=== PATIENT | male | born 1995 | race Caucasian/White ===

== ENCOUNTER 2016-08-07 02:01 | Emergency (ER) | payer MEDICAID, OTHER ==
[~2016-08-07] VITALS: Ht 182.9 cm; Wt 77.3 kg
[~2016-08-07 02:01] MED LIST: Z.0.NO CURRENT MEDS
[2016-08-07 02:02] VITALS: TEMP 97.5
[2016-08-07] MEDS ORDERED: SODIUM CHLOR 0.9% 1000 ML INJ 1,000 ML IV SCH (02:15)
[2016-08-07] MEDS ORDERED: THIAMINE INJ 100 MG in SODIUM CHLORIDE 0.9% INJ 100 ML IV ONE (02:15)
--- NOTE | 2016-08-07 02:18 | PD ---
HPI Chief Complaint: Alcohol/Drug Intoxication Time Seen by Provider: 02:08 Travel History International Travel<30 days: No Contact w/Intl Traveler<30days: No Traveled to known affect area: No History of Present Illness HPI 20-year-old male was brought in by EMS for altered mental status. Patient went out drinking tonight. Patient came home and became unresponsive at home. EMS was called. Patient was given Narcan 2 mg IV improvement in mental status. Patient workup and admitted to alcohol and drug use. Patient did not provide information about the drug. Patient denies any headache. Patient denies any chest pain or shortness of breath. Patient denies abdominal pain. Patient denies any focal weakness and numbness of extremity. Patient was transported to ED. Patient is more lethargic upon arriving to the ED. Patient however responded to pain stimuli. Patient is breathing on his own. PFSH Past Medical History Diminished Hearing: No Immunizations Current: Yes Past Surgical History Other Surgery: Yes (bump removed from knee) Social History Alcohol Use: Yes Tobacco Use: No Substance Use: Yes Allergies-Medications (Allergen,Severity, Reaction): Coded Allergies: No Known Allergies (Verified , 08/07/16) Reported Meds & Prescriptions Reported Meds & Active Scripts Active No Active Prescriptions or Reported Medications Review of Systems ROS Limitations: Altered Mental Status General / Constitutional: No: Fever Eyes: No: Visual changes HENT: No: Headaches Cardiovascular: No: Chest Pain or Discomfort Respiratory: No: Shortness of Breath Gastrointestinal: No: Abdominal Pain Genitourinary: No: Dysuria Musculoskeletal: No: Pain Skin: No Rash Neurologic: No: Weakness Psychiatric: No: Depression Endocrine: No: Polydipsia Hematologic/Lymphatic: No: Easy Bruising Physical Exam Narrative GENERAL: Well-nourished, well-developed patient. SKIN: Warm and dry. HEAD: Normocephalic. EYES: No scleral icterus. No injection or drainage. Pupils 3 mm equal reactive. NECK: Supple, trachea midline. No JVD or lymphadenopathy. CARDIOVASCULAR: Regular rate and rhythm without murmurs, gallops, or rubs. RESPIRATORY: Breath sounds equal bilaterally. No accessory muscle use. GASTROINTESTINAL: Abdomen soft, non-tender, nondistended. MUSCULOSKELETAL: No cyanosis, or edema. BACK: Nontender without obvious deformity. No CVA tenderness. Neurologic exam: Patient's lethargic. Patient responded to painful stimuli. Patient moves all extremity on painful stimuli. No obvious focal neurological deficit. Data Data Last Documented VS Vital Signs Date Time Temp Pulse Resp B/P Pulse Ox O2 Delivery O2 Flow Rate FiO2 08/07/16 06:19 89 99/56 99 Room Air 08/07/16 02:34 16 2 08/07/16 02:02 97.5 Orders Sodium Chlor 0.9% 1000 Ml Inj (Ns 1000 M (08/07/16 02:15) Thiamine Inj (Thiamine Inj) (08/07/16 02:15) Complete Blood Count With Diff (08/07/16 02:09) Comprehensive Metabolic Panel (08/07/16 02:09) Creatine Kinase (Cpk) (08/07/16 02:09) Troponin I (08/07/16 02:09) Prothrombin Time / Inr (Pt) (08/07/16 02:09) Act Partial Throm Time (Ptt) (08/07/16 02:09) Urinalysis - C+S If Indicated (08/07/16 02:09) Alcohol (Ethanol) (08/07/16 02:09) Drug Screen, Random Urine (08/07/16 02:09) Salicylates (Aspirin) (08/07/16 02:09) Tylenol (Acetaminophen) (08/07/16 02:09) Thyroid Stimulating Hormone (08/07/16 02:09) Chest, Single Ap (08/07/16 02:09) Ct Brain W/O Iv Contrast(Rout) (08/07/16 02:09) Iv Access Insert/Monitor (08/07/16 02:09) Ecg Monitoring (08/07/16 02:09) Oximetry (08/07/16 02:09) Labs Laboratory Tests Test 08/07/16 08/07/16 02:20 02:25 White Blood Count 10.5 TH/MM3 Red Blood Count 5.04 MIL/MM3 Hemoglobin 15.3 GM/DL Hematocrit 44.4 % Mean Corpuscular Volume 88.1 FL Mean Corpuscular Hemoglobin 30.4 PG Mean Corpuscular Hemoglobin 34.5 % Concent Red Cell Distribution Width 12.5 % Platelet Count 192 TH/MM3 Mean Platelet Volume 7.8 FL Neutrophils (%) (Auto) 74.0 % Lymphocytes (%) (Auto) 20.3 % Monocytes (%) (Auto) 4.8 % Eosinophils (%) (Auto) 0.6 % Basophils (%) (Auto) 0.3 % Neutrophils # (Auto) 7.8 TH/MM3 Lymphocytes # (Auto) 2.1 TH/MM3 Monocytes # (Auto) 0.5 TH/MM3 Eosinophils # (Auto) 0.1 TH/MM3 Basophils # (Auto) 0.0 TH/MM3 CBC Comment DIFF FINAL Differential Comment Prothrombin Time 11.1 SEC Prothromb Time International 1.0 RATIO Ratio Activated Partial 20.9 SEC Thromboplast Time Sodium Level 142 MEQ/L Potassium Level 4.1 MEQ/L Chloride Level 106 MEQ/L Carbon Dioxide Level 25.2 MEQ/L Anion Gap 11 MEQ/L Blood Urea Nitrogen 18 MG/DL Creatinine 1.08 MG/DL Estimat Glomerular Filtration 87 ML/MIN Rate Random Glucose 104 MG/DL Calcium Level 8.4 MG/DL Total Bilirubin 0.4 MG/DL Aspartate Amino Transf 20 U/L (AST/SGOT) Alanine Aminotransferase 20 U/L (ALT/SGPT) Alkaline Phosphatase 88 U/L Total Creatine Kinase 140 U/L Troponin I LESS THAN 0.02 NG/ML Total Protein 7.2 GM/DL Albumin 4.3 GM/DL Thyroid Stimulating Hormone 1.760 uIU/ML 3rd Gen Salicylates Level LESS THAN 1.7 MG/DL Acetaminophen Level LESS THAN 2.0 MCG/ML Ethyl Alcohol Level 181 MG/DL Urine Color YELLOW Urine Turbidity CLEAR Urine pH 6.0 Urine Specific [place] 1.023 Urine Protein TRACE mg/dL Urine Glucose (UA) NEG mg/dL Urine Ketones NEG mg/dL Urine Occult Blood NEG Urine Nitrite NEG Urine Bilirubin NEG Urine Urobilinogen LESS THAN 2.0 MG/DL Urine Leukocyte Esterase NEG Urine RBC 1 /hpf Urine WBC 1 /hpf Microscopic Urinalysis Comment CULT NOT INDICATED Urine Opiates Screen NEG Urine Barbiturates Screen NEG Urine Amphetamines Screen NEG Urine Benzodiazepines Screen NEG Urine Cocaine Screen NEG Urine Cannabinoids Screen POS [facility] Medical Decision Making Medical Screen Exam Complete: Yes Emergency Medical Condition: Yes Interpretation(s) 2:18 AM. EKG shows sinus rhythm nonspecific ST-T wave change. Differential Diagnosis Differential diagnosis including alcohol intoxication, drug overdose, electrolyte imbalance, TIA, CVA, sepsis. Narrative Course 20-year-old male with altered mental status. Patient admitted to alcohol and drug use. Patient was given Narcan 2 mg IV improvement in mental status. Patient's lethargic now. Normal saline solution 1 25 cc an hour. Thiamine 100 mg IV. 6:25 AM. Patient's awake alert and wants to go home. Patient was discharged to the custody of the parents. Diagnosis Primary Impression: Alcohol intoxication Qualified Code: F10.120 - Alcohol intoxication, uncomplicated Additional Impression: Substance abuse Patient Instructions: General Instructions Additional Instructions: Follow-up with local physician as needed. Med/Other Pt SpecificInfo: No Meds Exist/No RX given Scripts No Active Prescriptions or Reported Meds Disposition: 01 DISCHARGE HOME Condition: Stable Adi Lama MD Aug 07, 2016 02:18
[2016-08-07 02:34] VITALS: BP 131/61; PULSE 69; RESP 16; O2SAT 100
[2016-08-07 02:41] LABS: AUTOMATED NEUTROPHIL # 7.8 TH/MM3 (1.8-7.7); BASOPHIL % 0.3 % (0.0-2.0); EOSINOPHIL # 0.1 TH/MM3 (0-0.4); EOSINOPHIL % 0.6 % (0.0-4.0); HEMATOCRIT 44.4 % (39.0-51.0); HEMO FLAGS DIFF FINAL; LYMPH % 20.3 % (9.0-44.0); LYMPHOCYTE # 2.1 TH/MM3 (1.0-4.8); MEAN CELL VOLUME 88.1 FL (80.0-100.0); MEAN CORPUSCULAR HEMOGLOBIN 30.4 PG (27.0-34.0); MEAN CORPUSCULAR HGB CONC 34.5 % (32.0-36.0); MONO % 4.8 % (0.0-8.0); PLATELET COUNT 192 TH/MM3 (150-450); RED BLOOD COUNT 5.04 MIL/MM3 (4.50-5.90); RED CELL DISTRIBUTION WIDTH 12.5 % (11.6-17.2); WHITE BLOOD COUNT 10.5 TH/MM3 (4.0-11.0)
--- NOTE | 2016-08-07 02:42 | RADRPT ---
EXAM DATE/TIME: 08/07/2016 02:35 [facility] COMPARISON: No previous studies available for comparison. INDICATIONS : Short of breath. Passed out. MEDICAL HISTORY : None. SURGICAL HISTORY : None. ENCOUNTER: Initial ACUITY: 1 day PAIN SCORE: Non-responsive. LOCATION: Bilateral chest FINDINGS: A single view of the chest demonstrates the lungs to be symmetrically aerated without evidence of mas s, infiltrate or effusion. The cardiomediastinal contours are unremarkable. Osseous structures are intact. CONCLUSION: Normal examination. Wing Coombs MD on August 07, 2016 at 2:40 Board Certified Radiologist. This report was verified electronically.
[2016-08-07 02:51] LABS: AMPHETAMINE, URINE NEG (NEG); BARBITURATES, URINE NEG (NEG); COCAINE, URINE NEG (NEG)
[2016-08-07 02:58] LABS: APTT (PATIENT) 20.9 SEC (24.3-30.1); PROTHROMBIN TIME - PATIENT 11.1 SEC (9.8-11.6)
[2016-08-07 03:10] LABS: BLOOD, URINE NEG (NEG); COMMENT (UR) CULT NOT INDICATED; CULTURE IF INDICATED CULT NOT INDICATED; GLUCOSE,URINE NEG (NEG); KETONE, URINE NEG (NEG); NITRITE,URINE NEG (NEG); URINE COLOR YELLOW (YELLW/STRAW)
--- NOTE | 2016-08-07 03:16 | RADRPT ---
EXAM DATE/TIME: 08/07/2016 02:52 [facility] COMPARISON: No previous studies available for comparison. INDICATIONS : Altered mental status today. RADIATION DOSE: 36.42 CTDIvol (mGy) MEDICAL HISTORY : None SURGICAL HISTORY : None. ENCOUNTER: Initial ACUITY: 1 day PAIN SCALE: Non-responsive LOCATION: cranial TECHNIQUE: Multiple contiguous axial images were obtained of the head. Using automated exposure control and adj ustment of the mA and/or kV according to patient size, radiation dose was kept as low as reasonably a chievable to obtain optimal diagnostic quality images. FINDINGS: CEREBRUM: The ventricles are normal for age. No evidence of midline shift, mass lesion, hemorrhage or acute in farction. No extra-axial fluid collections are seen. POSTERIOR FOSSA: The cerebellum and brainstem are intact. The 4th ventricle is midline. The cerebellopontine angle i s unremarkable. EXTRACRANIAL: The visualized portion of the orbits is intact. SKULL: The calvaria is intact. No evidence of skull fracture. CONCLUSION: Normal examination. Wing Coombs MD on August 07, 2016 at 3:14 Board Certified Radiologist. This report was verified electronically.
[2016-08-07 03:45] LABS: ALT (GPT) 20 U/L (9-52); ANION GAP 11 MEQ/L (5-15); AST (GOT) 20 U/L (15-39); BICARBONATE 25.2 MEQ/L (21.0-32.0); BLOOD UREA NITROGEN 18 MG/DL (7-18); CHLORIDE 106 MEQ/L (98-107); GLOMERULAR FILTRATION RATE 87 ML/MIN (>89); POTASSIUM 4.1 MEQ/L (3.5-5.1); SODIUM (NA) 142 MEQ/L (136-145)
[2016-08-07 03:55] LABS: ALKALINE PHOSPHATASE 88 U/L (45-117); CREATINE KINASE 140 U/L (39-308); TOTAL BILIRUBIN ADULT 0.4 MG/DL (0.2-1.0)
[2016-08-07 03:56] LABS: ACETAMINOPHEN LESS THAN 2.0 MCG/ML (10.0-30.0)
[2016-08-07 06:19] VITALS: BP 99/56; PULSE 89; O2SAT 99
--- NOTE | 2016-08-07 13:08 | EKG ---
Date Performed: 08/07/2016 Time Performed: 02:06:09 PTAGE: 20 years EKG: Sinus rhythm NORMAL ECG NO PREVIOUS TRACING DOCTOR: Apoorva Dupree Interpretating Date/Time 08/07/2016 13:07:11
== END 2016-08-07 06:56 | disposition home or self-care (01) ==
LOC: NEPE 02:01
DX: F10.120 Alcohol abuse with intoxication, uncomplicated (principal); F12.10 Cannabis abuse, uncomplicated; R53.83 Other fatigue; Y90.6 Blood alcohol level of 120-199 mg/100 ml
CPT/HCPCS: 70450; 71010; 80053; 80307; 81001; 82550; 84443; 84484; 85025; 85610; 85730; 93005; 96361; 96365; 99285; G0480; J3411; J7030; 80320; 80329; G0481